=== PATIENT | male | born 1975 | race Caucasian/White ===

== ENCOUNTER 2022-04-23 08:20 | Emergency (ER) | payer OTHER ==
[2022-04-23] MEDS ORDERED: Acetaminophen 500 MG TAB ONE (08:51)
== END 2022-04-23 10:47 ==
LOC: CSHERS 08:20
DX: M79.672 Pain in left foot (principal); E78.5 Hyperlipidemia, unspecified; I11.0 Hypertensive heart disease with heart failure; I50.9 Heart failure, unspecified; Z87.891 Personal history of nicotine dependence
CPT/HCPCS: 93005